=== PATIENT | female | born 1980 | race Caucasian/White ===

== ENCOUNTER 2018-05-18 17:57 | Emergency (ER) | payer SELFPAY ==
[2018-05-18 20:50] LABS: A TYPE INFLUENZA AG NEGATIVE (NEGATIVE); B INFLUENZA AG NEGATIVE (NEGATIVE)
--- NOTE | 2018-05-18 20:52 | ER Document Report ---
HPI - HPI Pain Level: 4 Notes: Patient is a 37-year-old female who presents to the emergency department with complaint of excessive sleepiness. Patient reports that she usually has insomnia and cannot sleep well however on Wednesday she went to sleep and did not wake up until earlier today. Patient denies the use of any medications. Patient states that now she feels like she has generalized body aches all over. Patient denies having any fever but reports that she might have had some chills earlier today. Patient denies any cough, congestion or runny nose. Patient denies any nausea, vomiting or diarrhea. - CONSTITUTIONAL Constitutional: REPORTS: Chills Past Medical History - General Information source: Patient - Social History Smoking Status: Current Every Day Smoker Frequency of alcohol use: Occasional Drug Abuse: Marijuana Family History: Reviewed & Not Pertinent Patient has suicidal ideation: No Patient has homicidal ideation: No - Medical History Medical History: Negative Renal/ Medical History: Denies: Hx Peritoneal Dialysis Past Surgical History: Reports: Hx Orthopedic Surgery - right ankle - Immunizations Immunizations up to date: Yes Vertical Provider Document - CONSTITUTIONAL Notes: PHYSICAL EXAMINATION: GENERAL: Well-appearing, well-nourished and in no acute distress. HEAD: Atraumatic, normocephalic. EYES: Pupils equal round and reactive to light, extraocular movements intact, conjunctiva are normal. ENT: Nares patent, oropharynx clear without exudates. Moist mucous membranes. NECK: Normal range of motion, supple without lymphadenopathy LUNGS: Breath sounds clear to auscultation bilaterally and equal. No wheezes rales or rhonchi. HEART: Regular rate and rhythm without murmurs ABDOMEN: Soft, nontender, nondistended abdomen. No guarding, no rebound. No masses appreciated. Female : No CVA tenderness Musculoskeletal: Normal range of motion, no pitting or edema. No cyanosis. NEUROLOGICAL: Cranial nerves grossly intact. Normal speech, normal gait. Normal sensory, motor exams PSYCH: Normal mood, normal affect. SKIN: Warm, Dry, normal turgor, no rashes or lesions noted. - INFECTION CONTROL TRAVEL OUTSIDE OF THE [place] IN LAST 30 DAYS: No Course - Re-evaluation Re-evalutation: Influenza and serum hCG are both negative. Patient will be discharged home in stable condition. - Vital Signs Vital signs: Temp Pulse Resp BP Pulse Ox 98.3 F 87 16 121/75 97 11/14/18 18:03 05/18/18 18:03 05/18/18 18:03 05/18/18 18:03 05/18/18 18:03 Discharge - Discharge Clinical Impression: Myalgia Fatigue Qualifiers: Fatigue type: unspecified Qualified Code(s): R53.83 - Other fatigue Condition: Stable Disposition: HOME, SELF-CARE Additional Instructions: Fatigue Fatigue can be caused by many medical and emotional problems. Fatigue can be an early symptom of infection, or can be caused by chronic infection. It can be a symptom of metabolic diseases like diabetes, hypothyroidism, or anemia. It can result from sleep problems such as sleep apnea. Fatigue can be a symptom of depression. Overuse of alcohol or caffeine can cause fatigue. Many drugs can cause fatigue, either as a side effect or when withdrawing from the drug. Until the evaluation is complete, try to keep up your normal activities. Get regular sleep hours, but avoid oversleeping. Try to get regular exercise. Eliminate alcohol, caffeine, and any unnecessary drugs, herbs, or medicines ( discuss any changes in prescription medicines with your doctor). Contact the doctor if there is any change for the worse. Myalagia (Muscle Pain) Myalgia is pain in the muscles. We use the word myalgia to describe muscle pain where there's no history of injury, no known muscle disease, and the muscles are normal to examination. Myalgias can be a symptom of an acute illness , such as influenza, hepatitis, or any viral illness, especially with fever. Sometimes the muscle pain comes before any other symptoms. Myalgia can also be an early symptom of inflammatory muscle disease, such as lupus. If myalgia is accompanied by an acute illness that explains the muscle pain , then no further testing needs to be done. When there's no clear reason for the pain, tests may be done to see if there's an inflammatory or other disease of the muscles. The usual treatment for myalgias is anti-inflammatory medication, such as ibuprofen. Muscle aches may be soothed with a heating pad or hot compress. If muscles remain painful for more than a few days, you'll need testing and followup. Return if a muscle becomes swollen, red, or severely painful. Both your influenza test in your blood test were negative today. The excessive fatigue he you are feeling may be caused by a virus. I suggest that you take ibuprofen 600 mg every 6 hours, drink plenty of fluids and continue to get rest if you feel tired. If this continues on into next week I would recommend following up with your primary care provider for further studies. Forms: Return to Work
[2018-05-18 21:19] VITALS: BP 120/71
== END 2018-05-18 21:15 | disposition home or self-care (01) ==
LOC: ER 17:57
DX: R53.83 Other fatigue (principal); M79.10 Myalgia, unspecified site; F12.10 Cannabis abuse, uncomplicated; F17.200 Nicotine dependence, unspecified, uncomplicated
CPT/HCPCS: 36415; 84703; 87804; 99283

== ENCOUNTER 2018-07-04 15:39 | Emergency (ER) | payer SELFPAY ==
--- NOTE | 2018-07-04 17:27 | ER Document Report ---
ED Extremity Problem, Upper - General Chief Complaint: Shoulder Pain Stated Complaint: LEFT SHOULDER PAIN Time Seen by Provider: 07/04/18 17:13 Mode of Arrival: Ambulatory Information source: Patient Notes: Patient is a well-nourished well-developed 37-year-old female who is in no apparent distress on physical examination tonight however she does appear to be in moderate discomfort. She also appears to be having a slight anxiety attack. Patient states she does have a history of PTSD and she moved down here from [place] where she does not have a more medical marijuana and which was handling her PTSD and she is on currently no medications for this and she is also wanting help for that aspect of her life along with this neck and left shoulder arm pain. Other than that patient denies any medical problems. 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 She has not exactly sure which one it is but she is been diagnosed with this in the past. She is never had anything to this intensity. TRAVEL OUTSIDE OF THE [place] IN LAST 30 DAYS: No - HPI Patient complains to provider of: Left, Arm, Elbow, Shoulder. No: Injury Onset: Other - We can have ago. Recent injury: No Where: Home Quality of pain: Cramping, Sharp, Throbbing Severity of pain: Moderate, Constant, Still present Pain Level: 4 Associated symptoms: Neck pain, Numbness, Tingling. denies: Hurts to breathe, Short of breath, Sweating, Vomiting Exacerbated by: Movement, Exertion Relieved by: Nothing Similar symptoms previously: Yes Recently seen / treated by doctor: No - Related Data Allergies/Adverse Reactions: tioconazole [From Monistat 1 (tioconazole)] Allergy (Verified 05/18/18 17:58) Past Medical History - Social History Smoking Status: Current Every Day Smoker Cigarette use (# per day): Yes - Quarter pack a day Chew tobacco use (# tins/day): No Smoking Education Provided: Yes Frequency of alcohol use: Rare Drug Abuse: None Occupation: Marine Lives with: Alone Family History: Reviewed & Not Pertinent Patient has suicidal ideation: No Patient has homicidal ideation: No Renal/ Medical History: Denies: Hx Peritoneal Dialysis Past Surgical History: Reports: Hx Orthopedic Surgery - right ankle - Immunizations Immunizations up to date: Yes Review of Systems - Review of Systems Constitutional: Malaise EENT: No symptoms reported Cardiovascular: No symptoms reported Respiratory: No symptoms reported Gastrointestinal: No symptoms reported Genitourinary: No symptoms reported Female Genitourinary: No symptoms reported Musculoskeletal: See HPI, Back pain - When her, Muscle pain - Works will kind of what is just to wait, Neck pain Skin: No symptoms reported Hematologic/Lymphatic: No symptoms reported Neurological/Psychological: See HPI - And then, Anxiety -: Yes All other systems reviewed and negative Physical Exam - Vital signs Vitals: Temp Pulse Resp BP Pulse Ox 98.6 F 92 22 H 109/83 100 07/04/18 15:40 07/04/18 15:40 07/04/18 15:40 07/04/18 15:40 07/04/18 15:40 Interpretation: Normal - Notes Notes: PHYSICAL EXAMINATION: GENERAL: Patient is a well-nourished well-developed 37-year-old female who little in no apparent distress is in obvious discomfort as she moves her head very gingerly not to try to hurt. And also is slightly anxious and tearful. HEAD: Atraumatic, normocephalic. EYES: Pupils equal round and reactive to light, extraocular movements intact, conjunctiva are normal. ENT: Nares patent, oropharynx clear without exudates. Moist mucous membranes. NECK: Examination of patient's cervical spine shows some very tender areas to palpate. Most have some minor paravertebral spasms noted. Upper trapezius are also very tight and may be an early spasm as well bilaterally. Patient has positive cervical compression sign and that when I apply pressure downward on the cervical spine she has some numbness that runs down the left arm. LUNGS: Breath sounds clear to auscultation bilaterally and equal. No wheezes rales or rhonchi. HEART tachycardic rate and rhythm without murmurs Female : deferred Musculoskeletal: Examination patient's left shoulder shows that she has some tenderness anterior reproduction on the area of the rotator cuff. She has full range of motion and there is no crepitus felt in the anterior portion to passive rotation she can bring the arm to parallel but after that he gets very difficult and increased amount of tenderness to palpation along the cervical spine and the scapular border areas. NEUROLOG Normal speech, normal gait. Normal sensory, motor exams also examination of the DTRs in upper extremities are all normal. All the DTRs in the lower extremities are normal. PSYCH: Tearful mood denies homicidal suicidal ideation. SKIN: Warm, Dry, normal turgor, no rashes or lesions noted. Course - Re-evaluation Re-evalutation: 07/04/18 18:49 Patient's x-rays were negative for acute findings. Patient had asked when we were discussing her neck and left arm pain about getting intervention for her PTSD. She has been down here for quite a while away from [place] which is her home and her is on the appointment and she is having a difficult time handling at this point in time. She denies being suicidal or homicidal she states she has 2 wonderful girls and she would never harm herself and has never thought about harming herself. So at this time I believe her torticollis is caused by anxiety and stress as well as mechanical problems related to her bulging disc in her neck. At this time will place her on a little bit of Valium for the muscle stress in the back. In the neck. And I went up later on little pain medication for sleep at night. In the 2 she will work as 1 for the anxiety and the muscle relaxer this I mean the Valium. Also place her on a low steroid taper. Again patient has requested that we see if we can have someone contact her outpatient for possible help with her PTSD. Part of the problem that is making this amplified now is that her is on the appointment with the Nanette and she has not mailed to talk to him much at all in the past several weeks. She is just moved down here from [place] and her 2 daughters live in [place] still and she is not been able to see them in the several weeks. So all of this is coming to a head and I believe that her waking up that one morning with the torticollis is been secondary to this very strain full recent few weeks. I truly believe she is not homicidal or suicidal I do not believe she would attempt any type of heroic statements. I informed to get a chance and send her home with some pain medication and Valium as a muscle relaxer as well as anxiety medication. 07/04/18 21:49 - Vital Signs Vital signs: Temp Pulse Resp BP Pulse Ox 98.2 F 82 18 123/84 100 07/04/18 19:13 07/04/18 19:13 07/04/18 19:13 07/04/18 19:13 07/04/18 19:13 - Laboratory Laboratory results interpreted by me: I am also preparing to take her for Nile the psych nurse. I have requested a consult for help to get established for PTSD. I have given her the patient's phone number and her sticker no put it in the box up with the main ER for her to evaluate. Patient will be looking forward to this call sometime on Wednesday or of this week. Discharge - Discharge Clinical Impression: Torticollis, acute, Post traumatic stress disorder (PTSD) Condition: Stable Disposition: HOME, SELF-CARE Instructions: Anxiety ([facility]), Torticollis ([facility]) Additional Instructions: Torticollis You have torticollis, often called "wry neck." This is due to spasm of neck muscles -- locking the neck into a crooked position. Many different problems can lead to torticollis, such as a minor injury, sleeping with tension on the neck, or inflammation in the glands of the neck. Torticollis is usually treated with heat to relax the neck muscles, but the physician may recommend cold packs if a minor injury is suspected as the cause. Muscle relaxing and antiinflammatory medicine are often prescribed. You may need a neck collar to support your head. Improvement is usually rapid. Usually, the neck can be moved fully within two days, although some pain may persist for a few weeks. Call the doctor at once if you worsen, or if you develop high fever, severe headache, numbness or weakness, or other alarming symptoms. Anxiety The physician feels that some of your health problems are being caused by anxiety. Anxiety affects your health in many ways. Anxiety alone can cause palpitations, sweats, chest pains, abdominal pains, shortness of breath, and headaches. It contributes to ulcer disease, high blood pressure, irritable bowel syndrome, and has been shown to cause flare-ups of many other diseases. Anxiety is not a simple disorder to treat. If the anxiety is due to recent life stresses, you may simply need time to "work through" the changes. If the anxiety is due to an underlying unhappiness with yourself or due to psychiatric disturbance, professional help will be needed. Your physician can refer you for further help if needed. Anti-anxiety medication is occasionally given if the stress is acute or if you are having trouble sleeping. Chronic or frequent use of these medications is not a good idea because the body becomes reliant on it, preventing you from dealing with life's normal stresses. As we discussed I would place you on 3 pills a steroid taper, a Valium which works as anxiety and a muscle relaxer and a little pain medication for sleep at night. Ice to the neck 3 times a day. You may alternate ice with moist heat. Light stretching of the neck 3 times a day. I am will have 1 of our social workers give you a call on probably Wednesday or to discuss the options you have of working outpatient for the PTSD and anxiety disorder. Remember if anything changes between now and then do not hesitate to return to ER for recheck. Prescriptions: Diazepam [Valium 5 mg Tablet] 5 mg PO TID PRN #12 tablet PRN Reason: Hydrocodone/Acetaminophen [[place] 5-325 mg Tablet] 1 tab PO Q6 PRN #12 tablet PRN Reason: Prednisone 5 mg PO ASDIR PRN 6 Days #1 tab.ds.pk PRN Reason: Forms: Smoking Cessation Education Referrals: [facility] [NO LOCAL MD] - Follow up as needed
--- NOTE | 2018-07-04 18:13 | RADIOLOGY REPORT (SQ) ---
EXAM DESCRIPTION: SHOULDER LEFT 2 OR MORE VIEWS COMPLETED DATE/TIME: 07/04/2018 5:57 pm REASON FOR STUDY: pain COMPARISON: None. NUMBER OF VIEWS: Three views. TECHNIQUE: Internal rotation, external rotation, and Y view images acquired of the left shoulder. LIMITATIONS: None. FINDINGS: MINERALIZATION: Normal. BONES: No acute fracture or dislocation. No worrisome bone lesions. JOINTS: No dislocation. VISUALIZED LUNGS AND RIBS: No pneumothorax. No rib fracture. SOFT TISSUES: No radiopaque foreign body. OTHER: No other significant finding. IMPRESSION: NEGATIVE STUDY OF THE LEFT SHOULDER. NO RADIOGRAPHIC EVIDENCE OF ACUTE INJURY. TECHNICAL DOCUMENTATION: JOB ID: [id number] [employer]- All Rights Reserved Reading location - IP/workstation name: [email or web address]
--- NOTE | 2018-07-04 18:14 | RADIOLOGY REPORT (SQ) ---
EXAM DESCRIPTION: CERV SP 3 VIEW OR LESS COMPLETED DATE/TIME: 07/04/2018 5:57 pm REASON FOR STUDY: neck pain COMPARISON: None. NUMBER OF VIEWS: Three views. TECHNIQUE: AP, lateral and odontoid radiographic images acquired of the cervical spine. LIMITATIONS: None. FINDINGS: MINERALIZATION: Normal. ALIGNMENT: Anatomic. VERTEBRAE: Vertebral bodies of normal height. DISCS: No significant disc space narrowing. No large osteophytes. HARDWARE: None in the spine. SOFT TISSUES: No masses or calcifications. Lung apices clear. OTHER: No other significant finding. IMPRESSION: NO SIGNIFICANT RADIOGRAPHIC FINDING IN THE CERVICAL SPINE. TECHNICAL DOCUMENTATION: JOB ID: [id number] [employer]- All Rights Reserved Reading location - IP/workstation name: [email or web address]
[2018-07-04 19:17] VITALS: BP 123/84
== END 2018-07-04 19:17 | disposition home or self-care (01) ==
LOC: ER 15:39
DX: M43.6 Torticollis (principal); F43.10 Post-traumatic stress disorder, unspecified; F41.9 Anxiety disorder, unspecified; M50.80 Other cervical disc disorders, unspecified cervical region; M25.512 Pain in left shoulder; M54.9 Dorsalgia, unspecified; M79.10 Myalgia, unspecified site; R20.0 Anesthesia of skin; R20.2 Paresthesia of skin; R53.81 Other malaise; R25.2 Cramp and spasm; R00.0 Tachycardia, unspecified; F17.210 Nicotine dependence, cigarettes, uncomplicated; Z88.3 Allergy status to other anti-infective agents
CPT/HCPCS: 72040; 99283

== ENCOUNTER 2018-09-22 16:41 | Emergency (ER) | payer SELFPAY | END 2018-09-22 18:44 | disposition left against medical advice (07) | LOC: ER 16:41 | DX: Z53.21 Procedure and treatment not carried out due to patient leaving prior to being seen by health care provider (principal); M54.9 Dorsalgia, unspecified ==

== ENCOUNTER 2018-11-05 19:17 | Emergency (ER) | payer SELFPAY ==
[2018-11-05 19:39] VITALS: BP 129/84
[2018-11-05] MEDS ORDERED: LIDOCAINE 2% VISCOUS SOLN 20 ML UDCUP PO ONE (19:53)
[2018-11-05] MEDS ORDERED: KETOROLAC TROMETHAMINE 60 MG/2 ML SDV IM ONE (19:53)
[2018-11-05] MEDS ORDERED: PENICILLIN V POTASSIUM 500 MG TABLET PO ONE (19:53)
--- NOTE | 2018-11-05 19:55 | ER Document Report ---
HPI - HPI Time Seen by Provider: 11/05/18 19:42 Pain Level: 5 Context: Patient is a 38-year-old female who presents to the emergency department with a chief complaint of a toothache. She has pain to teeth #14, 15, and 16. She has not seen a dentist in regards to this issue. She says that she has had a filling fall out of her tooth a couple months ago and the past 2 days she has had increased pain. She denies any fever. Denies any difficulty breathing, difficulty swallowing, or any other symptoms. - CONSTITUTIONAL Constitutional: DENIES: Fever, Chills - EENT EENT: DENIES: Sore Throat, Ear Pain, Nasal Drainage-Clear, Nasal Drainage- Purulent, Congestion, Eye problems - NEURO Neurology: DENIES: Headache, Weakness - CARDIOVASCULAR Cardiovascular: DENIES: Chest pain - RESPIRATORY Respiratory: DENIES: Trouble Breathing, Coughing - REPRODUCTIVE Reproductive: DENIES: : - MUSCULOSKELETAL Musculoskeletal: DENIES: Extremity pain - DERM Skin Color: Normal Skin Problems: None Past Medical History - Social History Smoking Status: Current Every Day Smoker Drug Abuse: Other - kratum Family History: Reviewed & Not Pertinent Renal/ Medical History: Denies: Hx Peritoneal Dialysis Past Surgical History: Reports: Hx Orthopedic Surgery - right ankle - Immunizations Immunizations up to date: Yes Vertical Provider Document - CONSTITUTIONAL Agree With Documented VS: Yes Exam Limitations: No Limitations General Appearance: No Apparent Distress - INFECTION CONTROL TRAVEL OUTSIDE OF THE [place] IN LAST 30 DAYS: No - HEENT HEENT: Atraumatic, Normocephalic, PERRLA. negative: Conjuctival Injection, Pharyngeal Exudate, Pharyngeal Tenderness, Pharyngeal Erythema, Tympanic Membrane Red, Tympanic Membrane Bulging Mouth Diagram: 1 - Dental caries noted to these teeth - NECK Neck: Normal Inspection, Supple - RESPIRATORY Respiratory: Breath Sounds Normal, No Respiratory Distress - CARDIOVASCULAR Cardiovascular: Regular Rate, Regular Rhythm Pulses: Normal: Radial - MUSCULOSKELETAL/EXTREMETIES Musculoskeletal/Extremeties: FROM - NEURO Level of Consciousness: Awake, Alert, Appropriate Motor/Sensory: No Motor Deficit, No Sensory Deficit - DERM Integumentary: Warm, Dry, No Rash Course - Re-evaluation Re-evalutation: 11/05/18 19:55 Patient's physical exam and history is most consistent with a infected tooth. Patient is able to swallow, no facial swelling noted, airways pain, vital signs are normal. I do not suspect Sean's angina, apical abscess, or airway obstruction. The patient will be started on oral antibiotics. I have given the patient education on their antibiotics. Patient was given instructions to follow-up with a dentist this week. Return precautions were given. Verbal discharge instructions were given. Patient verbalized understanding. Patient is stable for discharge. NERY Mora the patient's oxygen saturation and her oxygen saturation was 100% on room air. - Vital Signs Vital signs: Temp Pulse Resp BP Pulse Ox 98.2 F 99 20 129/84 H 88 L 11/05/18 19:37 11/05/18 19:37 11/05/18 19:37 11/05/18 19:37 11/05/18 19:37 Discharge - Discharge Clinical Impression: Toothache Condition: Stable Disposition: HOME, SELF-CARE Instructions: Penicillin V K ([facility]), Toothache ([facility]) Additional Instructions: You have been seen in the emergency department for a toothache. You may take ibuprofen 600 mg and Tylenol 1000 mg every 6 hours as needed for the pain. You have also been given topical lidocaine. Placed that to the affected tooth as needed to help with pain. You have also been prescribed antibiotics. Please take the antibiotics as prescribed, even if you start to feel better. If you develop a fever greater than 100.4 F, or have any symptoms that are worrisome to you, please return to the emergency department. Please follow-up with a dentist this week in regards to your visit. Please make an appointment with [facility] on Wednesday. Please finish all your antibiotics before you see them. [facility] [phone] Prescriptions: Penicillin V Potassium [Penicillin Vk 500 mg Tablet] 500 mg PO Q6H #40 tablet
== END 2018-11-05 20:19 | disposition home or self-care (01) ==
LOC: ER 19:17
DX: K02.9 Dental caries, unspecified (principal); K08.89 Other specified disorders of teeth and supporting structures; F17.200 Nicotine dependence, unspecified, uncomplicated; F19.10 Other psychoactive substance abuse, uncomplicated
CPT/HCPCS: 99282; J1885; J3490